=== PATIENT | male | born 1995 | race African-American/Black ===

== ENCOUNTER 2018-03-10 10:53 | Emergency (ER) | payer BC, SELFPAY ==
--- NOTE | 2018-03-10 12:06 | EDPHYS ---
Physician Documentation [facility] Name: Benjamin Rico Jr Age: 23 yrs Sex: Male : 1995 Arrival Date: 03/10/2018 Time: 10:56 Bed 12 Private MD: ED Physician Bassam Garcia HPI: 03/10 16:39 This 23 yrs old Black Male presents to ER via Ambulatory with complaints of Ear Pain. kdr 16:39 The patient presents with drainage, pain, swelling, tenderness. The complaints affect kdr the right ear. Onset: The symptoms/episode began/occurred gradually, 3 day(s) ago. 17:14 The patient had his ears pierced about 4 weeks [employer] and now has pain, swelling and kdr drainage to the puncture site of the right ear. Historical: - Allergies: 11:00 No Known Allergies; sv - Home Meds: 11:00 None [Active]; sv - PMHx: 11:00 None; sv - PSHx: 11:00 None; sv - Immunization history:: Flu vaccine is up to date. - Ebola Screening: : No symptoms or risks identified at this time. ROS: 17:14 Constitutional: Negative for fever, chills, and weight loss, Eyes: Negative for injury, kdr pain, redness, and discharge, Neck: Negative for injury, pain, and swelling, Cardiovascular: Negative for chest pain, palpitations, and edema. 17:14 ENT: Positive for drainage from ear(s), ear pain, From puncture site of ear piercing on pinna. Exam: 03/11 07:38 Constitutional: This is a well developed, well nourished patient who is awake, alert, kdr and in no acute distress. ENT: External ear(s): abscess, that is very small, cellulitis, that is minimal, of the right ear lobe, erythema, that is minimal. Vital Signs: 03/10 11:00 BP 135 / 77; Pulse 69; Resp 16; Temp 97.4; Pulse Ox 99% ; Weight 103.87 kg; Height 6 sv ft. 2 in. (187.96 cm); Pain 4/10; 11:00 Body Mass Index 29.40 (103.87 kg, 187.96 cm) sv MDM: 12:04 Patient medically screened. kdr 03/11 07:38 Data reviewed: vital signs, nurses notes. Counseling: I had a detailed discussion with kdr the patient and/or guardian regarding: the historical points, exam findings, and any diagnostic results supporting the discharge/admit diagnosis, the need for outpatient follow up. Administered Medications: 03/10 12:13 Drug: Clindamycin 300 mg Route: PO; 12:13 Follow up: Response: Medication administered at discharge. Disposition: 03/10/18 12:04 Discharged to Home. Impression: Cellulitis of right external ear. - Condition is Stable. - Discharge Instructions: Cellulitis, Adult, [id number]. - Prescriptions for Clindamycin HCl 300 mg Oral Capsule - take 1 capsule by ORAL route every 6 hours for 7 days; 28 capsule. - Medication Reconciliation Form, Thank You Letter, Antibiotic Education form. - Follow up: Private Physician; When: 2 - 3 days; Reason: If symptoms return, Further diagnostic work-up, Recheck today's complaints, Continuance of care, Re-evaluation by your physician. - Problem is new. - Symptoms are unchanged. Signatures: Riana Rodríguez RN RN Bassam Garcia MD MD [facility] Zo Martinez RN RN Corrections: (The following items were deleted from the chart) 12:16 12:04 03/10/2018 12:04 Discharged to Home. Impression: Cellulitis of right external hb ear. Condition is Stable. Forms are Medication Reconciliation Form, Thank You Letter, Antibiotic Education, Prescription Opioid Use. Follow up: Private Physician; When: 2 - 3 days; Reason: If symptoms return, Further diagnostic work-up, Recheck today's complaints, Continuance of care, Re-evaluation by your physician. Problem is new. Symptoms are unchanged. kdr
--- NOTE | 2018-03-10 12:06 | ER ---
Nurse's Notes [facility] Name: Benjamin Rico Jr Age: 23 yrs Sex: Male : 1995 Arrival Date: 03/10/2018 Time: 10:56 Bed 12 Private MD: Diagnosis: Cellulitis of right external ear Presentation: 03/10 10:59 Presenting complaint: Patient states: right ear pain x 2 days. Transition of care: sv patient was not received from another setting of care. Onset of symptoms was March 08, 2018. Care prior to arrival: None. 10:59 Method Of Arrival: Ambulatory sv 10:59 Acuity: LUANNE 5 sv 11:30 Risk Assessment: Do you want to hurt yourself or someone else? Patient reports no hb desire to harm self or others. Initial Sepsis Screen: Does the patient meet any 2 criteria? No. Patient's initial sepsis screen is negative. Does the patient have a suspected source of infection? No. Patient's initial sepsis screen is negative. Historical: - Allergies: 11:00 No Known Allergies; sv - Home Meds: 11:00 None [Active]; sv - PMHx: 11:00 None; sv - PSHx: 11:00 None; sv - Immunization history:: Flu vaccine is up to date. - Ebola Screening: : No symptoms or risks identified at this time. Screenin:45 Abuse screen: Denies threats or abuse. Denies injuries from another. Nutritional hb screening: No deficits noted. Tuberculosis screening: No symptoms or risk factors identified. Fall Risk None identified. Assessment: 11:45 General: Appears in no apparent distress. Behavior is calm, cooperative. Pain: Denies hb pain. Neuro: Level of Consciousness is awake, alert, obeys commands, Oriented to person, place, time, situation. Cardiovascular: Capillary refill < 3 seconds Patient's skin is warm and dry. Respiratory: Airway is patent Trachea midline Respiratory effort is even, unlabored, Respiratory pattern is regular, symmetrical. GI: No signs and/or symptoms were reported involving the gastrointestinal system. : No signs and/or symptoms were reported regarding the genitourinary system. EENT: redness behind right ear. Derm: Skin is pink, warm \T\ dry. Musculoskeletal: No signs and/or symptoms reported regarding the musculoskeletal system. Vital Signs: 11:00 BP 135 / 77; Pulse 69; Resp 16; Temp 97.4; Pulse Ox 99% ; Weight 103.87 kg; Height 6 sv ft. 2 in. (187.96 cm); Pain 4/10; 11:00 Body Mass Index 29.40 (103.87 kg, 187.96 cm) sv ED Course: 10:56 Patient arrived in ED. as 11:00 Triage completed. sv 11:00 Arm band placed on. sv 11:22 Bassam Garcia MD is Attending Physician. kdr 11:45 Patient has correct armband on for positive identification. Bed in low position. Call hb light in reach. Side rails up X 1. 12:15 No provider procedures requiring assistance completed. Patient did not have IV access hb during this emergency room visit. Administered Medications: 12:13 Drug: Clindamycin 300 mg Route: PO; hb 12:13 Follow up: Response: Medication administered at discharge. hb Outcome: 12:04 Discharge ordered by . kdr 12:15 Discharged to home ambulatory. hb 12:15 Condition: stable 12:15 Discharge instructions given to patient, Instructed on discharge instructions, follow up and referral plans. medication usage, Demonstrated understanding of instructions, follow-up care, medications, Prescriptions given X 1. 12:16 Patient left the ED. hb Signatures: Riana Rodríguez, RN RN Bassam Garcia MD MD kdr Elisabeth Mckeon Heather, RN RN hb
[2018-03-10] MEDS ORDERED: CLINDAMYCIN HCL 150 MG CAP ONE (12:18)
== END 2018-03-10 12:16 | disposition home or self-care (01) ==
LOC: ER 10:53
DX: H60.11 Cellulitis of right external ear (principal)
CPT/HCPCS: 99283

== ENCOUNTER 2019-05-04 22:32 | Emergency (ER) | payer BC, SELFPAY ==
[2019-05-05] MEDS ORDERED: DIAZEPAM 5 MG TABLET ONE (00:20)
[2019-05-05] MEDS ORDERED: KETOROLAC 30 MG/ML INJ ONE (00:21)
[2019-05-05] MEDS ORDERED: NA CHLORIDE 0.9% 1,000 ML ONE (00:21)
[2019-05-05 01:14] LABS: Absolute Lymphocytes (CBC) 1.8 K/uL (0.7-4.9); Basophils % 0.8 % (0-1.3); Hematocrit 41.2 % (39.6-49.0); Lymphocytes % 39.7 % (15.3-44.8); MPV 7.9 fL (7.6-11.3); RBC Red Blood Cell Count 4.94 M/uL (4.33-5.43)
[2019-05-05 01:29] LABS: ALT/SGPT 43 U/L (12-78); AST/SGOT 26 U/L (15-37); Albumin 4.4 g/dL (3.4-5.0); Alkaline Phosphatase 72 U/L (45-117); BUN Blood Urea Nitrogen 17 mg/dL (7-18); Bicarbonate 31 mmol/L (21-32); Bilirubin Total 0.6 mg/dL (0.2-1.0); Glucose Level 96 mg/dL (74-106); Potassium 3.4 mmol/L (3.5-5.1); Protein, Total 7.8 g/dL (6.4-8.2); Sodium Level 141 mmol/L (136-145)
--- NOTE | 2019-05-05 01:31 | ER ---
Nurse's Notes [facility] Name: Benjamin Rico Jr Age: 24 yrs Sex: Male : 1995 Arrival Date: 05/04/2019 Time: 22:34 Bed 23 Private MD: Diagnosis: Pain in right lower leg;Pain in right leg Presentation: 05/04 22:46 Presenting complaint: Patient states: R leg pain x 1.5 months. States, "It started with aa1 a really bad stephan horse and I went to see my doctor and he gave me some medicine and it went away but then it came back 2 days after I finished the medicine." Denies injury. Transition of care: patient was not received from another setting of care. Onset of symptoms was February 2019. Risk Assessment: Do you want to hurt yourself or someone else? Patient reports no desire to harm self or others. Initial Sepsis Screen: Does the patient meet any 2 criteria? No. Patient's initial sepsis screen is negative. Does the patient have a suspected source of infection? No. Patient's initial sepsis screen is negative. Care prior to arrival: None. 22:46 Method Of Arrival: Ambulatory aa1 22:46 Acuity: LUANNE 4 aa1 Triage Assessment: 22:49 General: Appears in no apparent distress. comfortable, Behavior is calm, cooperative, aa1 appropriate for age. Historical: - Allergies: 22:49 No Known Allergies; aa1 - Home Meds: 22:49 None [Active]; aa1 - PMHx: 22:49 None; aa1 - PSHx: 22:49 None; aa1 - Immunization history:: Flu vaccine is not up to date. - Social history:: Smoking status: Patient/guardian denies using tobacco. - Ebola Screening: : No symptoms or risks identified at this time. - Family history:: not pertinent. Screenin/06 00:00 Abuse screen: Denies threats or abuse. Denies injuries from another. Nutritional aj1 screening: No deficits noted. Tuberculosis screening: No symptoms or risk factors identified. 02:26 Fall Risk None identified. aj1 Assessment: 00:00 General: Appears in no apparent distress. uncomfortable, Behavior is calm, cooperative, aj1 appropriate for age. Pain: Complains of pain in right vila and right calf. Neuro: Level of Consciousness is awake, alert, obeys commands. Cardiovascular: Patient's skin is warm and dry. Respiratory: Airway is patent Respiratory effort is even, unlabored, Respiratory pattern is regular, symmetrical. GI: No signs and/or symptoms were reported involving the gastrointestinal system. : No signs and/or symptoms were reported regarding the genitourinary system. EENT: No signs and/or symptoms were reported regarding the EENT system. Derm: Skin is normal. Musculoskeletal: Circulation, motion, and sensation intact. 01:00 Reassessment: Patient appears in no apparent distress at this time. No changes from aj1 previously documented assessment. Patient and/or family updated on plan of care and expected duration. Pain level reassessed. Patient is alert, oriented x 3, equal unlabored respirations, skin warm/dry/pink. 01:30 Reassessment: Discharge pending completion of IV fluids. aj1 02:10 Reassessment: Patient appears in no apparent distress at this time. No changes from aj1 previously documented assessment. Patient and/or family updated on plan of care and expected duration. Pain level reassessed. Patient is alert, oriented x 3, equal unlabored respirations, skin warm/dry/pink. Vital Signs: 05/04 22:49 BP 126 / 78; Pulse 70; Resp 16; Temp 98.0; Pulse Ox 100% on R/A; Weight 108.86 kg; aa1 Height 6 ft. 2 in. (187.96 cm); Pain 7/10; 05/05 01:30 BP 122 / 62; Pulse 75; Resp 18; Pulse Ox 97% on R/A; aj1 05/04 22:49 Body Mass Index 30.81 (108.86 kg, 187.96 cm) aa ED Course: 05/04 22:34 Patient arrived in ED. as 22:48 Triage completed. aa1 22:49 Arm band placed on right wrist. Patient placed in waiting room, Patient notified of 1 wait time. 23:46 Wicho Ag MD is Attending Physician. [facility] 05/05 00:00 Patient has correct armband on for positive identification. Bed in low position. Call aj1 light in reach. Side rails up X 1. 00:00 No provider procedures requiring assistance completed. Inserted saline lock: 22 gauge aj1 in right antecubital area, using aseptic technique. Blood collected. 00:01 Juana Hollingsworth, RN is Primary Nurse. aj1 01:20 US Extremity Venous Unilateral Ltd In Process Unspecified. EDMS 01:29 Ajay Heller MD is Referral Physician. [facility] 01:49 Tib Fib Right XRAY In Process Unspecified. EDMS 02:25 IV discontinued, intact, bleeding controlled, No redness/swelling at site. Pressure aj1 dressing applied. Administered Medications: 00:27 Drug: Valium 5 mg Route: PO; aj1 02:26 Follow up: Response: No adverse reaction aj1 00:58 Drug: NS 0.9% 1000 ml Route: IV; Rate: 1 bolus; Site: left antecubital; aj1 02:27 Follow up: IV Status: Completed infusion; IV Intake: 1000ml aj1 01:01 Drug: TORadol 30 mg Route: IVP; Site: right antecubital; aj1 02:26 Follow up: Response: No adverse reaction aj1 Intake: 02:27 IV: 1000ml; Total: 1000ml. aj1 Outcome: :29 Discharge ordered by . [facility] 02:26 Discharged to home ambulatory. aj1 02:26 Condition: good 02:26 Discharge instructions given to patient, Instructed on discharge instructions, follow up and referral plans. no drinking with medication, no driving heavy equipment, medication usage, Demonstrated understanding of instructions, follow-up care, medications, Prescriptions given X 2. 02:27 Patient left the ED. aj1 Signatures: Dispatcher [employer] Juana Galvan, LASHAE RN aj1 Patricia Guadalupe RN RN aa1 Wicho Ag MD MD cha Martinez, Amelia as
--- NOTE | 2019-05-05 01:31 | EDPHYS ---
Physician Documentation [facility] Name: Benjamin Rico Jr Age: 24 yrs Sex: Male : 1995 Arrival Date: 05/04/2019 Time: 22:34 Bed 23 Private MD: ED Physician Wicho Ag HPI: 05/05 00:10 This 24 yrs old Black Male presents to ER via Ambulatory with complaints of Leg Pain. emmanuel 00:10 The patient presents with decreased range of motion, pain. The complaints affect the emmanuel lateral aspect of right calf and right calf. Context: The problem was sustained at an unknown site. Onset: The symptoms/episode began/occurred 7 day(s) ago. Modifying factors: The symptoms are alleviated by nothing. the symptoms are aggravated by nothing. Associated signs and symptoms: The patient has no apparent associated signs or symptoms. Severity of symptoms: At their worst the symptoms were mild, moderate, in the emergency department the symptoms are unchanged. The patient has not experienced similar symptoms in the past. Historical: - Allergies: 05/04 22:49 No Known Allergies; aa1 - Home Meds: 22:49 None [Active]; aa1 - PMHx: 22:49 None; aa1 - PSHx: 22:49 None; aa1 - Immunization history:: Flu vaccine is not up to date. - Social history:: Smoking status: Patient/guardian denies using tobacco. - Ebola Screening: : No symptoms or risks identified at this time. - Family history:: not pertinent. ROS: 05/05 00:10 Constitutional: Negative for fever, chills, and weight loss, Eyes: Negative for injury, emmanuel pain, redness, and discharge, ENT: Negative for injury, pain, and discharge, Neck: Negative for injury, pain, and swelling, Cardiovascular: Negative for chest pain, palpitations, and edema, Respiratory: Negative for shortness of breath, cough, wheezing, and pleuritic chest pain, Abdomen/GI: Negative for abdominal pain, nausea, vomiting, diarrhea, and constipation, Back: Negative for injury and pain, : Negative for injury, bleeding, discharge, and swelling, Skin: Negative for injury, rash, and discoloration, Neuro: Negative for headache, weakness, numbness, tingling, and seizure, Psych: Negative for depression, anxiety, suicide ideation, homicidal ideation, and hallucinations, Allergy/Immunology: Negative for hives, rash, and allergies, Endocrine: Negative for neck swelling, polydipsia, polyuria, polyphagia, and marked weight changes, Hematologic/Lymphatic: Negative for swollen nodes, abnormal bleeding, and unusual bruising. MS/extremity: Positive for decreased range of motion, pain, of the lateral aspect of right calf, right calf and right vila. Exam: 00:10 Constitutional: This is a well developed, well nourished patient who is awake, alert, emmanuel and in no acute distress. Head/Face: Normocephalic, atraumatic. Eyes: Pupils equal round and reactive to light, extra-ocular motions intact. Lids and lashes normal. Conjunctiva and sclera are non-icteric and not injected. Cornea within normal limits. Periorbital areas with no swelling, redness, or edema. ENT: Nares patent. No nasal discharge, no septal abnormalities noted. Tympanic membranes are normal and external auditory canals are clear. Oropharynx with no redness, swelling, or masses, exudates, or evidence of obstruction, uvula midline. Mucous membranes moist. Neck: Trachea midline, no thyromegaly or masses palpated, and no cervical lymphadenopathy. Supple, full range of motion without nuchal rigidity, or vertebral point tenderness. No Meningismus. Chest/axilla: Normal chest wall appearance and motion. Nontender with no deformity. No lesions are appreciated. Cardiovascular: Regular rate and rhythm with a normal S1 and S2. No gallops, murmurs, or rubs. Normal PMI, no JVD. No pulse deficits. Respiratory: Lungs have equal breath sounds bilaterally, clear to auscultation and percussion. No rales, rhonchi or wheezes noted. No increased work of breathing, no retractions or nasal flaring. Abdomen/GI: Soft, non-tender, with normal bowel sounds. No distension or tympany. No guarding or rebound. No evidence of tenderness throughout. Back: No spinal tenderness. No costovertebral tenderness. Full range of motion. Male : Normal genitalia with no discharge or lesions. Skin: Warm, dry with normal turgor. Normal color with no rashes, no lesions, and no evidence of cellulitis. Neuro: Awake and alert, GCS 15, oriented to person, place, time, and situation. Cranial nerves II-XII grossly intact. Motor strength 5/5 in all extremities. Sensory grossly intact. Cerebellar exam normal. Normal gait. Psych: Awake, alert, with orientation to person, place and time. Behavior, mood, and affect are within normal limits. 00:10 Musculoskeletal/extremity: ROM: full active range of motion, full passive range of motion, Circulation is intact in all extremities. Sensation intact. Compartment Syndrome exam of affected extremity: is normal. DVT Exam: negative Homans' sign noted on exam, no appreciated bluish discoloration, no erythema, no increased warmth, pain, swelling, tenderness. Vital Signs: 05/04 22:49 BP 126 / 78; Pulse 70; Resp 16; Temp 98.0; Pulse Ox 100% on R/A; Weight 108.86 kg; aa1 Height 6 ft. 2 in. (187.96 cm); Pain 7/10; 05/05 01:30 BP 122 / 62; Pulse 75; Resp 18; Pulse Ox 97% on R/A; aj1 05/04 22:49 Body Mass Index 30.81 (108.86 kg, 187.96 cm) aa1 MDM: 05/04 23:46 Patient medically screened. [facility] 05/05 00:12 Data reviewed: vital signs, nurses notes, lab test result(s), radiologic studies, plain emmanuel films, ultrasound. 05/05 00:10 Order name: CBC with Diff; Complete Time: 01:16 [facility] 05/05 00:10 Order name: Comprehensive Metabolic Panel [facility] 05/05 00:10 Order name: Tib Fib Right XRAY [facility] 05/05 00:10 Order name: US Extremity Venous Unilateral Ltd [facility] Administered Medications: 00:27 Drug: Valium 5 mg Route: PO; aj1 02:26 Follow up: Response: No adverse reaction aj1 00:58 Drug: NS 0.9% 1000 ml Route: IV; Rate: 1 bolus; Site: left antecubital; aj1 02:27 Follow up: IV Status: Completed infusion; IV Intake: 1000ml aj 01:01 Drug: TORadol 30 mg Route: IVP; Site: right antecubital; aj1 02:26 Follow up: Response: No adverse reaction aj1 Disposition: 05/05/19 01:29 Discharged to Home. Impression: Pain in right lower leg, Pain in right leg. - Condition is Stable. - Discharge Instructions: Musculoskeletal Pain. - Prescriptions for Ibuprofen 600 mg Oral Tablet - take 1 tablet by ORAL route every 6 hours As needed take with food; 20 tablet. Valium 5 mg Oral Tablet - take 1 tablet by ORAL route every 8 hours As needed; 20 tablet. - Work release form, Medication Reconciliation Form, Thank You Letter, Antibiotic Education, Prescription Opioid Use form. - Follow up: Private Physician; When: 2 - 3 days; Reason: Recheck today's complaints, Continuance of care, Re-evaluation by your physician. Follow up: Ajay Heller; When: 2 - 3 days; Reason: Recheck today's complaints, Continuance of care, Re-evaluation by your physician. - Problem is new. - Symptoms have improved. Signatures: Dispatcher [employer] EDJuana Puga RN RN aj1 Patricia Guadalupe RN RN aa1 Wicho Ag MD MD cha Corrections: (The following items were deleted from the chart) 02:27 01:29 05/05/2019 01:29 Discharged to Home. Impression: Pain in right lower leg; Pain in aj1 right leg. Condition is Stable. Discharge Instructions: Musculoskeletal Pain. Prescriptions for Ibuprofen 600 mg Oral Tablet - take 1 tablet by ORAL route every 6 hours As needed take with food; 20 tablet, Valium 5 mg Oral Tablet - take 1 tablet by ORAL route every 8 hours As needed; 20 tablet. and Forms are Medication Reconciliation Form, Thank You Letter, Antibiotic Education, Prescription Opioid Use. Follow up: Private Physician; When: 2 - 3 days; Reason: Recheck today's complaints, Continuance of care, Re-evaluation by your physician. Follow up: Ajay Heller; When: 2 - 3 days; Reason: Recheck today's complaints, Continuance of care, Re-evaluation by your physician. Problem is new. Symptoms have improved. emmanuel
[2019-05-05 04:11] VITALS: TEMP 98
[2019-05-05 04:12] VITALS: BP 122/62; O2SAT 97
--- NOTE | 2019-05-05 08:23 | RAD REPORT ---
EXAM DESCRIPTION: US - Extremity Venous Uni Ltd - 05/05/2019 1:20 am CLINICAL HISTORY: PAIN Leg swelling and edema. COMPARISON: No comparisons FINDINGS: Right lower extremity venous system was interrogated with Doppler technique. Normal flow, compressibility and augmentation was noted. There is no DVT present. IMPRESSION: No evidence of right lower extremity deep venous thrombosis.
--- NOTE | 2019-05-05 08:33 | RAD REPORT ---
EXAM DESCRIPTION: RAD - Tib Fib Right - 05/05/2019 1:48 am CLINICAL HISTORY: PAIN COMPARISON: No comparisons FINDINGS: No fracture or dislocation seen.
== END 2019-05-05 02:27 | disposition home or self-care (01) ==
LOC: ER 22:32
DX: M79.604 Pain in right leg (principal)
CPT/HCPCS: 36415; 80053; 85025; 93971; 96361; 96374; 99284; J7030

== ENCOUNTER 2019-07-03 09:29 | Emergency (ER) | payer BC, SELFPAY ==
--- NOTE | 2019-07-03 10:22 | ER ---
Nurse's Notes [facility] Name: Benjamin Rico Jr Age: 24 yrs Sex: Male : 1995 Arrival Date: 07/03/2019 Time: 09:30 Bed 11 Private MD: Diagnosis: Abrasion of ear Presentation: 07/03 09:44 Presenting complaint: Patient states: L ear pain, i think it was bleeding this morning. ch when I yawn it cracks. Transition of care: patient was not received from another setting of care. Onset of symptoms was July 03, 2019 at 07:00. Risk Assessment: Do you want to hurt yourself or someone else? Patient reports no desire to harm self or others. Initial Sepsis Screen: Does the patient meet any 2 criteria? No. Patient's initial sepsis screen is negative. Does the patient have a suspected source of infection? No. Patient's initial sepsis screen is negative. Care prior to arrival: None. 09:44 Method Of Arrival: Ambulatory 09:44 Acuity: LUANNE 5 ch Triage Assessment: 09:45 General: Appears in no apparent distress. comfortable, Behavior is calm, cooperative, ch appropriate for age. Pain: Complains of pain in left ear Pain currently is 8 out of 10 on a pain scale. EENT: Reports pain in left ear. Historical: - Allergies: 09:45 No Known Allergies; ch - Home Meds: 09:45 None [Active]; ch - PMHx: 09:45 None; ch - PSHx: 09:45 None; ch - Immunization history:: Adult Immunizations up to date. - Coronavirus screen:: The patient has NOT traveled to [place], [place], or [place] in the past 14 days. The patient has NOT had contact with known/suspected case of Coronavirus?. - Social history:: Smoking status: Patient denies any tobacco usage or history of. - Ebola Screening: : Patient negative for fever greater than or equal to 101.5 degrees Fahrenheit, and additional compatible Ebola Virus Disease symptoms Patient denies exposure to infectious person Patient denies travel to an Ebola-affected area in the 21 days before illness onset No symptoms or risks identified at this time. Screenin:32 Abuse screen: Denies threats or abuse. Denies injuries from another. Nutritional ss screening: No deficits noted. Tuberculosis screening: Never had TB. Fall Risk None identified. Assessment: 10:15 Reassessment: Patient appears in no apparent distress at this time. No changes from previously documented assessment. Patient and/or family updated on plan of care and expected duration. Pain level reassessed. Patient is alert, oriented x 3, equal unlabored respirations, skin warm/dry/pink. Vital Signs: 09:45 BP 118 / 69; Pulse 68; Resp 16; Temp 98.8; Pulse Ox 99% on R/A; Weight 104.33 kg; Height 6 ft. 1 in. (185.42 cm); Pain 7/10; 09:45 Body Mass Index 30.34 (104.33 kg, 185.42 cm) ED Course: 09:30 Patient arrived in ED. as 09:45 Triage completed. 09:45 Arm band placed on left wrist. 10:01 Wicho Ag MD is Attending Physician. [facility] 10:15 Patient has correct armband on for positive identification. Bed in low position. 10:30 Dara Martinez, LASHAE is Primary Nurse. 10:31 No provider procedures requiring assistance completed. Patient did not have IV access ss during this emergency room visit. Administered Medications: 10:31 Drug: Neosporin Ointment 1 application Route: Topical; Site: wound; ss Outcome: 10:22 Discharge ordered by . [facility] 10:31 Discharged to home ambulatory, with friend. 10:31 Condition: good 10:31 Discharge instructions given to patient, family, Instructed on discharge instructions, follow up and referral plans. Demonstrated understanding of instructions, follow-up care. 10:33 Patient left the ED. ss Signatures: Ju Colin, RN RN Wicho Ag MD MD cha Martinez, Amelia as Dara Martinez RN RN ss
--- NOTE | 2019-07-03 10:22 | EDPHYS ---
Physician Documentation [facility] Name: Benjamin Rico Jr Age: 24 yrs Sex: Male : 1995 Arrival Date: 07/03/2019 Time: 09:30 Bed 11 Private MD: ED Physician Wicho Ag HPI: 07/03 10:19 This 24 yrs old Black Male presents to ER via Ambulatory with complaints of Ear Pain. emmanuel 10:19 The patient presents with pain, tenderness. The complaints affect the left ear. Onset: emmanuel The symptoms/episode began/occurred 2 day(s) ago. Modifying factors: The symptoms are alleviated by nothing, the symptoms are aggravated by nothing. Associated signs and symptoms: The patient has no apparent associated signs or symptoms. Severity of symptoms: At their worst the symptoms were mild in the emergency department the symptoms are unchanged. The patient has not experienced similar symptoms in the past. Historical: - Allergies: 09:45 No Known Allergies; ch - Home Meds: :45 None [Active]; ch - PMHx: :45 None; ch - PSHx: 09:45 None; ch - Immunization history:: Adult Immunizations up to date. - Coronavirus screen:: The patient has NOT traveled to [place], [place], or [place] in the past 14 days. The patient has NOT had contact with known/suspected case of Coronavirus?. - Social history:: Smoking status: Patient denies any tobacco usage or history of. - Ebola Screening: : Patient negative for fever greater than or equal to 101.5 degrees Fahrenheit, and additional compatible Ebola Virus Disease symptoms Patient denies exposure to infectious person Patient denies travel to an Ebola-affected area in the 21 days before illness onset No symptoms or risks identified at this time. ROS: 10:20 Constitutional: Negative for fever, chills, and weight loss, Eyes: Negative for injury, emmanuel pain, redness, and discharge, Neck: Negative for injury, pain, and swelling, Cardiovascular: Negative for chest pain, palpitations, and edema, Respiratory: Negative for shortness of breath, cough, wheezing, and pleuritic chest pain, Abdomen/GI: Negative for abdominal pain, nausea, vomiting, diarrhea, and constipation, Back: Negative for injury and pain, : Negative for injury, bleeding, discharge, and swelling, MS/Extremity: Negative for injury and deformity, Skin: Negative for injury, rash, and discoloration, Neuro: Negative for headache, weakness, numbness, tingling, and seizure, Psych: Negative for depression, anxiety, suicide ideation, homicidal ideation, and hallucinations, Allergy/Immunology: Negative for hives, rash, and allergies, Endocrine: Negative for neck swelling, polydipsia, polyuria, polyphagia, and marked weight changes, Hematologic/Lymphatic: Negative for swollen nodes, abnormal bleeding, and unusual bruising. 10:20 ENT: Positive for ear pain. Exam: 10:20 Constitutional: This is a well developed, well nourished patient who is awake, alert, emmanuel and in no acute distress. Head/Face: Normocephalic, atraumatic. Eyes: Pupils equal round and reactive to light, extra-ocular motions intact. Lids and lashes normal. Conjunctiva and sclera are non-icteric and not injected. Cornea within normal limits. Periorbital areas with no swelling, redness, or edema. Neck: Trachea midline, no thyromegaly or masses palpated, and no cervical lymphadenopathy. Supple, full range of motion without nuchal rigidity, or vertebral point tenderness. No Meningismus. Chest/axilla: Normal chest wall appearance and motion. Nontender with no deformity. No lesions are appreciated. Cardiovascular: Regular rate and rhythm with a normal S1 and S2. No gallops, murmurs, or rubs. Normal PMI, no JVD. No pulse deficits. Respiratory: Lungs have equal breath sounds bilaterally, clear to auscultation and percussion. No rales, rhonchi or wheezes noted. No increased work of breathing, no retractions or nasal flaring. Abdomen/GI: Soft, non-tender, with normal bowel sounds. No distension or tympany. No guarding or rebound. No evidence of tenderness throughout. Back: No spinal tenderness. No costovertebral tenderness. Full range of motion. Male : Normal genitalia with no discharge or lesions. Skin: Warm, dry with normal turgor. Normal color with no rashes, no lesions, and no evidence of cellulitis. MS/ Extremity: Pulses equal, no cyanosis. Neurovascular intact. Full, normal range of motion. Neuro: Awake and alert, GCS 15, oriented to person, place, time, and situation. Cranial nerves II-XII grossly intact. Motor strength 5/5 in all extremities. Sensory grossly intact. Cerebellar exam normal. Normal gait. Psych: Awake, alert, with orientation to person, place and time. Behavior, mood, and affect are within normal limits. 10:20 ENT: Ear canal(s): bleeding. Vital Signs: 09:45 BP 118 / 69; Pulse 68; Resp 16; Temp 98.8; Pulse Ox 99% on R/A; Weight 104.33 kg; Height 6 ft. 1 in. (185.42 cm); Pain 7/10; 09:45 Body Mass Index 30.34 (104.33 kg, 185.42 cm) MDM: 10:01 Patient medically screened. [facility] 10:20 Data reviewed: vital signs, nurses notes. [facility] Administered Medications: 10:31 Drug: Neosporin Ointment 1 application Route: Topical; Site: wound; ss Disposition: 07/03/19 10:22 Discharged to Home. Impression: Abrasion of ear. - Condition is Stable. - Discharge Instructions: Abrasion, Abrasion, [id number]. - Medication Reconciliation Form, Thank You Letter, Antibiotic Education, Prescription Opioid Use, Work release form form. - Follow up: Private Physician; When: 2 - 3 days; Reason: Recheck today's complaints, Continuance of care, Re-evaluation by your physician. - Problem is new. - Symptoms have improved. Signatures: Ju Colin, LASHAE RN Wicho Ag MD MD cha Smirch, Shelby, RN RN ss Corrections: (The following items were deleted from the chart) 10:33 10:22 07/03/2019 10:22 Discharged to Home. Impression: Abrasion of ear. Condition is ss Stable. Forms are Medication Reconciliation Form, Thank You Letter, Antibiotic Education, Prescription Opioid Use. Follow up: Private Physician; When: 2 - 3 days; Reason: Recheck today's complaints, Continuance of care, Re-evaluation by your physician. Problem is new. Symptoms have improved. [facility]
[2019-07-03 10:48] VITALS: BP 118/69; TEMP 98.8; O2SAT 99
== END 2019-07-03 10:33 | disposition home or self-care (01) ==
LOC: ER 09:29
DX: S00.412A Abrasion of left ear, initial encounter (principal)
CPT/HCPCS: 99283

== ENCOUNTER 2021-08-13 21:26 | Emergency (ER) | payer BC ==
[2021-08-13] MEDS ORDERED: LEVALBUTEROL 1.25 MG/3 ML NEB ONE (22:36)
[2021-08-13 22:37] LABS: Absolute Lymphocytes (CBC) 0.6 K/uL (0.7-4.9); Hematocrit 40.5 % (39.6-49.0); Lymphocytes % 15.6 % (15.3-44.8)
[2021-08-13 22:53] LABS: BUN Blood Urea Nitrogen 12 mg/dL (7-18); Bicarbonate 30 mmol/L (21-32); Glucose Level 80 mg/dL (74-106); Potassium 3.3 mmol/L (3.5-5.1); Sodium Level 138 mmol/L (136-145)
[2021-08-13 23:30] LABS: SARS-COV-2 RT PCR NEGATIVE (NEGATIVE)
[2021-08-13] MEDS ORDERED: BENZONATATE 100 MG CAP PO ONE (23:53)
--- NOTE | 2021-08-14 | ER ---
Nurse's Notes [facility] Name: Benjamin Rico Jr Age: 26 yrs Sex: Male : 1995 Arrival Date: 08/13/2021 Time: 21:29 Bed 4 Private MD: Diagnosis: Influenza due to identified novel influenza A virus;Cough Presentation: 08/13 21:47 Chief complaint: Patient states: Dry cough when waking up in the morning that is ke1 constant throughout the day. Started 4 days ago. Coronavirus screen: Vaccine status: Patient reports being unvaccinated. Ebola Screen: No symptoms or risks identified at this time. Initial Sepsis Screen: Does the patient meet any 2 criteria? No. Patient's initial sepsis screen is negative. Does the patient have a suspected source of infection? No. Patient's initial sepsis screen is negative. Risk Assessment: Do you want to hurt yourself or someone else? Patient reports no desire to harm self or others. Onset of symptoms was August 10, 2021. 21:47 Method Of Arrival: Ambulatory ke1 21:47 Acuity: LUANNE 3 ke1 Triage Assessment: 21:53 General: Appears uncomfortable, Behavior is calm, cooperative. Pain: Complains of pain ke1 in throat. Historical: - Allergies: 21:52 No Known Allergies; ke1 - PMHx: 21:52 None; ke1 - PSHx: 21:52 None; ke1 - Immunization history:: Flu vaccine is up to date. - Social history:: Smoking status: Patient reports the use of cigarette tobacco products, very seldom. Screenin:14 Abuse screen: Denies threats or abuse. Nutritional screening: No deficits noted. sf1 Tuberculosis screening: No symptoms or risk factors identified. Fall Risk None identified. Assessment: 22:14 Respiratory: Reports cough that is productive. sf1 Vital Signs: 21:47 BP 145 / 81; Pulse 108; Resp 18; Temp 98.8; Pulse Ox 100% ; Weight 116.57 kg; Height 6 ke1 ft. 1 in. (185.42 cm); Pain 2/10; 23:54 BP 135 / 90; Pulse 101; Resp 18; Pulse Ox 96% on R/A; sf1 21:47 Body Mass Index 33.91 (116.57 kg, 185.42 cm) ke1 21:47 throat pain from coughing ke1 ED Course: 21:29 Patient arrived in ED. jj6 21:52 Triage completed. ke1 21:57 Bassam Garcia MD is Attending Physician. kdr 22:02 Arm band placed on. as6 22:13 D-Dimer Sent. sf1 22:14 Patient has correct armband on for positive identification. Call light in reach. sf1 22:14 Basic Metabolic Panel Sent. sf1 22:14 CBC with Diff Sent. sf1 22:14 Inserted saline lock: 20 gauge in left antecubital area, using aseptic technique. Blood sf1 collected. 22:23 Yane Quispe, RN is Primary Nurse. st1 22:25 XRAY Chest (1 view) In Process Unspecified. EDMS 22:37 COVID-19/FLU A+B (Document "Date of Onset" if Symptomatic) Sent. sf1 03 00:19 No provider procedures requiring assistance completed. IV discontinued, intact, sf1 bleeding controlled, No redness/swelling at site. Pressure dressing applied. Administered Medications: 08/13 22:37 Drug: Xopenex (levalbuterol) (3) 1.25 mg Route: Inhalation; sf1 23:53 Drug: Tessalon Perle (benzonatate) 200 mg Route: PO; sf1 Outcome: 23:59 Discharge ordered by . kdr 03 00:19 Discharged to home ambulatory. sf1 Condition: good Discharge instructions given to patient, Instructed on discharge instructions, follow up and referral plans. Demonstrated understanding of instructions, follow-up care, medications, Prescriptions given X 3. 00:21 Patient left the ED. sf1 Signatures: Dispatcher [employer] EDMS Bassam Garcia MD MD [facility] Oxana Lopez jj6 Shabbir Aguilar RN RN as6 Yane Quispe, RN RN st1 Sussy Thomas RN RN sf1 Gisella Alanis RN RN ke1
--- NOTE | 2021-08-14 | EDPHYS ---
Physician Documentation [facility] Name: eBnjamin Rico Jr Age: 26 yrs Sex: Male : 1995 Arrival Date: 08/13/2021 Time: 21:29 Bed 4 Private MD: ED Physician Bassam Garcia HPI: 08/14 01:01 This 26 yrs old Black Male presents to ER via Ambulatory with complaints of Chest kdr Congestion, Cough, Nasal Congestion. 01:01 The patient or guardian reports cough, that is intermittent, described as mild, with no kdr sputum. Onset: The symptoms/episode began/occurred gradually, 4 day(s) ago. Severity of symptoms: At their worst the symptoms were mild, moderate, just prior to arrival, in the emergency department the symptoms are unchanged. Associated signs and symptoms: The patient has no apparent associated signs or symptoms. The patient has not experienced similar symptoms in the past. The patient has not recently seen a physician. She has had a cough for the last 4 days it has been a dry nonproductive cough that is constant throughout the day. Historical: - Allergies: 08/13 21:52 No Known Allergies; ke1 - PMHx: 21:52 None; ke1 - PSHx: 21:52 None; ke1 - Immunization history:: Flu vaccine is up to date. - Social history:: Smoking status: Patient reports the use of cigarette tobacco products, very seldom. ROS: 08/14 01:01 Constitutional: Negative for fever, chills, and weight loss, Eyes: Negative for injury, kdr pain, redness, and discharge, ENT: Negative for injury, pain, and discharge, Neck: Negative for injury, pain, and swelling, Cardiovascular: Negative for chest pain, palpitations, and edema, Abdomen/GI: Negative for abdominal pain, nausea, vomiting, diarrhea, and constipation, Back: Negative for injury and pain, : Negative for injury, bleeding, discharge, and swelling, MS/Extremity: Negative for injury and deformity, Skin: Negative for injury, rash, and discoloration, Neuro: Negative for headache, weakness, numbness, tingling, and seizure activity. Psych: Negative for depression, anxiety, suicide ideation, homicidal ideation, and hallucinations, Allergy/Immunology: Negative for hives, rash, and allergies, Endocrine: Negative for neck swelling, polydipsia, polyuria, polyphagia, and marked weight changes, Hematologic/Lymphatic: Negative for swollen nodes, abnormal bleeding, and unusual bruising. Respiratory: Positive for cough, with no reported sputum, shortness of breath, wheezing, Negative for pleurisy, wheezing. Exam: 01:01 Constitutional: This is a well developed, well nourished patient who is awake, alert, kdr and in no acute distress. Head/Face: Normocephalic, atraumatic. Eyes: Pupils equal round and reactive to light, extra-ocular motions intact. Lids and lashes normal. Conjunctiva and sclera are non-icteric and not injected. Cornea within normal limits. Periorbital areas with no swelling, redness, or edema. Neck: Trachea midline, no thyromegaly or masses palpated, and no cervical lymphadenopathy. Supple, full range of motion without nuchal rigidity, or vertebral point tenderness. No Meningismus. Chest/axilla: Normal chest wall appearance and motion. Nontender with no deformity. No lesions are appreciated. Respiratory: Lungs have equal breath sounds bilaterally, clear to auscultation and percussion. No rales, rhonchi or wheezes noted. No increased work of breathing, no retractions or nasal flaring. Abdomen/GI: Soft, non-tender, with normal bowel sounds. No distension or tympany. No guarding or rebound. No evidence of tenderness throughout. Back: No spinal tenderness. No costovertebral tenderness. Full range of motion. Skin: Warm, dry with normal turgor. Normal color with no rashes, no lesions, and no evidence of cellulitis. MS/ Extremity: Pulses equal, no cyanosis. Neurovascular intact. Full, normal range of motion. Neuro: Awake and alert, GCS 15, oriented to person, place, time, and situation. Cranial nerves II-XII grossly intact. Motor strength 5/5 in all extremities. Sensory grossly intact. Cerebellar exam normal. Normal gait. Psych: Awake, alert, with orientation to person, place and time. Behavior, mood, and affect are within normal limits. 01:01 Cardiovascular: Regular rate and rhythm with a normal S1 and S2. No gallops, murmurs, or rubs. Normal PMI, no JVD. No pulse deficits. 01:01 Respiratory: the patient does not display signs of respiratory distress, Respirations: normal, Breath sounds: rales, that are mild, are heard diffusely, Very minimal crackles diffuse. Vital Signs: 08/13 21:47 BP 145 / 81; Pulse 108; Resp 18; Temp 98.8; Pulse Ox 100% ; Weight 116.57 kg; Height 6 ke1 ft. 1 in. (185.42 cm); Pain 2/10; 23:54 BP 135 / 90; Pulse 101; Resp 18; Pulse Ox 96% on R/A; sf1 21:47 Body Mass Index 33.91 (116.57 kg, 185.42 cm) ke1 21:47 throat pain from coughing ke1 MDM: 23:59 Patient medically screened. kdr 08/14 01:01 Data reviewed: vital signs, nurses notes, lab test result(s), radiologic studies. kdr Counseling: I had a detailed discussion with the patient and/or guardian regarding: the historical points, exam findings, and any diagnostic results supporting the discharge/admit diagnosis, lab results, radiology results, the need for outpatient follow up. 01:04 ED course: Patient was stable and nontoxic in the ED. He was happy with the care kdr provided and the plan for discharge and follow-up. 08/13 21:58 Order name: Basic Metabolic Panel; Complete Time: 23:15 kdr 08/13 21:58 Order name: CBC with Diff; Complete Time: 23:15 kdr 08/13 21:58 Order name: XRAY Chest (1 view) kdr 08/13 21:58 Order name: D-Dimer; Complete Time: 23:15 kdr 08/13 22:31 Order name: COVID-19/FLU A+B (Document "Date of Onset" if Symptomatic); Complete Time: bb 23:55 08/13 21:58 Order name: IV Saline Lock; Complete Time: 22:13 kdr 08/13 21:58 Order name: Labs collected and sent; Complete Time: 22:14 kdr Administered Medications: 08/13 22:37 Drug: Xopenex (levalbuterol) (3) 1.25 mg Route: Inhalation; sf1 23:53 Drug: Tessalon Perle (benzonatate) 200 mg Route: PO; sf1 Disposition Summary: 08/13/21 23:59 Discharge Ordered Location: Home kdr Problem: new kdr Symptoms: have improved kdr Condition: Stable kdr Diagnosis - Influenza due to identified novel influenza A virus kdr - Cough kdr Followup: kdr - With: Private Physician - When: 2 - 3 days - Reason: If symptoms return, Further diagnostic work-up, Recheck today's complaints, Continuance of care, Re-evaluation by your physician Discharge Instructions: - Upper Respiratory Infection, Adult, [id number] kdr - Influenza, Adult, [id number] kdr - Discharge Summary Sheet la1 Forms: - Medication Reconciliation Form kdr - Thank You Letter kdr - Antibiotic Education kdr - Prescription Opioid Use kdr Prescriptions: - Promethazine VC 6.25-5 mg/5 mL Oral syrup - take 10 milliliter by ORAL route every 4-6 hours; 150 milliliter; Refills: 0, la1 Product Selection Permitted - Tessalon Perles 100 mg Oral Capsule - take 1 capsule by ORAL route every 8 hours As needed; 15 capsule; Refills: 0, la1 Product Selection Permitted - Tamiflu 75 mg Oral Capsule - take 1 tablet by ORAL route every 12 hours for 5 days; 10 tablet; Refills: 0, la1 Product Selection Permitted Signatures: Dispatcher [employer] EDPR Bassam Garcia MD MD kdr Sussy Thomas RN RN sf1 Gisella Alanis RN RN ke1
[2021-08-14 00:32] VITALS: TEMP 98.8
[2021-08-14 00:33] VITALS: BP 135/90; O2SAT 96
--- NOTE | 2021-08-14 11:07 | RAD REPORT ---
EXAM DESCRIPTION: RAD - Chest Single View - 08/13/2021 10:25 pm CLINICAL HISTORY: 6 years Male, Cough;Congestion COMPARISON: Chest radiograph dated 02/01/2020 FINDINGS: No focal lung consolidation. No pleural effusion. No pneumothorax. Cardiomediastinal silhouette is within normal limits. No acute osseous abnormality. IMPRESSION: No acute cardiopulmonary disease. Electronically signed by: Ike Cyr DO 08/13/2021 11:27 PM CDT Due to temporary technical issues with the PACS/Fluency reporting system, reports are being signed by the in house radiologists without review as a courtesy to insure prompt reporting. The interpreting radiologist is fully responsible for the content of the report.
== END 2021-08-14 00:21 | disposition home or self-care (01) ==
LOC: ER 21:26
DX: J10.1 Influenza due to other identified influenza virus with other respiratory manifestations (principal); Z20.822 Contact with and (suspected) exposure to COVID-19; Z72.0 Tobacco use
CPT/HCPCS: 85025; 80048; 36415; 85379; 0240U; 71045; 99284

== ENCOUNTER → 2023-08-08 | Emergency (ER) | payer BC, OTHER, SELFPAY ==
[~2023-08-08] MED LIST: ACETAMINOPHEN 500 MG TAB ONE
--- OUTSIDE RECORDS SUMMARY | 2023-08-08 10:04 | XMS REPORT | Continuity of Care Document ---
Author Name Unknown Address [address] [facility] [address] [place] [address] [facility] thconnect Address [address] [facility] [address] [place] [address] Care Team Providers Care Biostatistics Teacher Name Role Phone SANTA MICHAEL Primary Care Physician EVER Duarte Attending Clinician Ever Teran Attending Clinician [phone]- [phone] Payers Payer Name Policy Type Policy Number Effective Date Expirati on Date Source [facility] [id number] 2020 00:00:00 Problems Condition Name Condition Details Condition Category Status Onset Date Resolution Date Last Treatment Date Treating Clinician Comments Source Obesity (BMI 30-39.9) Obesity (BMI 30-39.9) Disease Active 2015-05 00:00: 00 [facility] Closed fracture of phalanx or phalanges of hand Closed fracture of phalanx or phalanges of hand Disease Active - 00:00: 00 Overview: Formattin g of this note might be different from the original. 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 [facility] Allergies, Adverse Reactions, Alerts Allergy Name Allergy Type Status Severity Reaction(s) Onset Date Inactive Date Treating Clinician Comments Source NO KNOWN ALLERGIE S Drug Class Active [facility] Social History Social Habit Start Date Stop Date Quantity Comments Source Exposure to SARS-CoV-2 (event) 2021-09-10 00:00:00 2021-09-20 13:31:00 Not sure [facility] Sex Assigned At 1995 00:00:00 1995 00:00:00 [facility] Smoking Status Start Date Stop Date Source Unknown if ever smoked [facility] Medications Ordered Medication Name Filled Medication Name Start Date Stop Date Current Medication? Ordering Clinician Indication Dosage Frequency Signature (SIG) Comments Components Source methylPREDN ISolone (MEDROL, MARLO,) 4 mg tablets 09-20 00:00: 00 Yes [id number] Take by mouth SEE-INSTRU CTIONS. follow package directions [facility] benzonatate 100 mg capsule 09-20 00:00: 00 Yes [id number] 100mg Take 1 capsule by mouth 3 (three) times daily as needed for Cough. [facility] traMADOL (ULTRAM) 50 mg tablet 2015-05 00:00: 00 Yes 50mg Take 1 tablet by mouth every 6 (six) hours as needed for Pain (scale 4-6). Janak John PA-C / Matthew Diaz MD ARIEL# [id number] DPS# [id number] Lic.# [id number] NPI# [id number] [facility] sulfamethox azole-trime thoprim (BACTRIM DS) 800-160 mg per tablet 2015-05 00:00: 00 Yes 1{tbl} Take 1 tablet by mouth every 12 (twelve) hours. [facility] sulindac (CLINORIL) 200 mg tablet 2015-05 00:00: 00 Yes 200mg Take 1 tablet by mouth 2 (two) times daily. [facility] Vital Signs Vital Name Observation Time Observation Value Comments S paulo Systolic blood pressure 2021-09-20 18:32:00 144 mm[Hg] [facility] Diastolic blood pressure 2021-09-20 18:32:00 95 mm[Hg] [facility] Heart rate 2021-09-20 18:32:00 84 /min [facility] Body temperature 2021-09-20 18:32:00 36.89 Allie [facility] Respiratory rate 2021-09-20 18:32:00 18 /min [facility] Body weight 2021-09-20 18:32:00 116.574 kg [facility] BMI 2021-09-20 18:32:00 33.91 kg/m2 [facility] Oxygen saturation in Arterial blood by Pulse oximetry 2021-09-20 18:32:00 98 /min [facility] Procedures Procedure Date / Time Performed Performing Clinicia n Source NOTICE OF PRIVACY PRACTICES 2021-09-20 18:27:12 Doctor Unassigned, [place] [facility] Encounters Start Date/Time End Date/Time Encounter Type Admission Type Attending Clinicians Care Facility Care Department Encounter ID Source 2021-09-20 13:33:00 2021-09-20 13:55:00 Emergency X [facility] ERT [id number] [facility] 2021-09-20 13:33:00 2021-09-20 13:55:00 [place] [facility] [id number] [facility]
--- NOTE | 2023-08-08 11:42 | RAD REPORT ---
EXAM DESCRIPTION: RAD - Hand Right 3 View - 08/08/2023 11:23 am CLINICAL HISTORY: Right hand pain status post injury FINDINGS: No fracture or dislocation is seen.
--- NOTE | 2023-08-08 11:46 | ER ---
Nurse's Notes [facility] Name: Benjamin Rico Jr Age: 28 yrs Sex: Male : 1995 Arrival Date: 08/08/2023 Time: 10:01 Bed 18 Private MD: Diagnosis: Right Hand Sprain Presentation: 08/07 10:12 Chief complaint: Fell from 8 foot ladder onto carpet floor yesterday, unknown LOC, c/o hb pain in right hand, right shoulder, headache, and mild SOB. Coronavirus screen: At this time, the client does not indicate any symptoms associated with coronavirus-19. Ebola Screen: No symptoms or risks identified at this time. Initial Sepsis Screen: Does the patient meet any 2 criteria? No. Patient's initial sepsis screen is negative. Does the patient have a suspected source of infection? No. Patient's initial sepsis screen is negative. Risk Assessment: Do you want to hurt yourself or someone else? Patient reports no desire to harm self or others. Onset of symptoms was August 07, 2023. 10:12 Method Of Arrival: Ambulatory hb 10:12 Acuity: LUANNE 3 hb Triage Assessment: 10:13 General: Appears in no apparent distress. Behavior is calm, cooperative. Pain: Pain hb currently is 9 out of 10 on a pain scale. EENT: No signs and/or symptoms were reported regarding the EENT system. Neuro: Level of Consciousness is awake, alert, obeys commands, Oriented to person, place, time, situation, Reports headache. Cardiovascular: Patient's skin is warm and dry. Respiratory: Reports shortness of breath at rest Respiratory effort is even, unlabored, Respiratory pattern is regular, symmetrical. GI: No signs and/or symptoms were reported involving the gastrointestinal system. : No signs and/or symptoms were reported regarding the genitourinary system. Derm: Skin is pink, warm \T\ dry. Musculoskeletal: Reports pain in right shoulder, right hand. Historical: - Allergies: 10:13 No Known Allergies; hb - Home Meds: 10:13 None [Active]; hb - PMHx: 10:13 None; hb - PSHx: 10:13 None; hb - Immunization history:: Adult Immunizations up to date. - Social history:: Smoking status: Patient denies any tobacco usage or history of. Screenin:25 [facility] ED Fall Risk Assessment (Adult) History of falling in the last 3 months, ph including since admission Yes- single mechanical fall (1 pt) Confusion or Disorientation No (0 pts) Intoxicated or Sedated No (0 pts) Impaired Gait No (0 pts) Mobility Assist Device Used No (0 pt) Altered Elimination No (0 pt) Score/Fall Risk Level 0 - 2 = Low Risk Oriented to surroundings, Maintained a safe environment, Provided non-skid footwear, Hourly rounding (assess needs \T\ fall precautionary measures) done. Abuse screen: Denies threats or abuse. Denies injuries from another. Nutritional screening: No deficits noted. Tuberculosis screening: No symptoms or risk factors identified. Assessment: 11:24 General: Appears in no apparent distress. comfortable, well groomed, Behavior is calm, ph cooperative, appropriate for age. Pain: Complains of pain in right hand. Neuro: Level of Consciousness is awake, alert, obeys commands, Oriented to person, place, time, situation. Derm: Skin is pink, warm \T\ dry. Musculoskeletal: Circulation, motion, and sensation intact. Swelling present in right hand. Vital Signs: 10:12 BP 133 / 84; Pulse 68; Resp 16; Temp 98.3; Pulse Ox 100% ; Weight 113.4 kg; Height 6 hb ft. 0 in. ; Pain 9/10; 12:18 BP 124 / 78; Pulse 69; Resp 18; Temp 98; Pulse Ox 99% on R/A; ph 10:12 Body Mass Index 33.91 (113.40 kg, 182.88 cm) hb 10:12 Pain Scale: Adult hb ED Course: 10:04 Patient arrived in ED. rg4 10:04 Oxana Sky FNP is PHCP. jh7 10:04 Wicho Ag MD is Attending Physician. jh7 10:13 Triage completed. hb 10:14 Arm band placed on. hb 10:15 Client placed on continuous cardiac and pulse oximetry monitoring. NIBP monitoring hb applied. Pulse ox on. NIBP on. 10:26 Nidhi Herman, RN is Primary Nurse. ph 11:25 XRAY Hand RIGHT 3 View In Process Unspecified. EDMS 11:25 Patient has correct armband on for positive identification. Bed in low position. Call ph light in reach. Side rails up X 1. Door closed. Noise minimized. 12:19 No provider procedures requiring assistance completed. Patient did not have IV access ph during this emergency room visit. Administered Medications: 11:03 Drug: Acetaminophen PO 1000 mg PO once Route: PO; ph 12:20 Follow up: Response: No adverse reaction ph Medication: 11:25 VIS not applicable for this client. ph Outcome: 11:46 Discharge ordered by MD. talbot 12:20 Discharged to home ambulatory, ph 12:20 Condition: good 12:20 Discharge instructions given to patient, Instructed on discharge instructions, follow up and referral plans. medication usage, Demonstrated understanding of instructions, follow-up care, medications, Prescriptions given X 1, 12:21 Patient left the ED. ph Signatures: Dispatcher [employer] EDNidhi Foss RN RN Zo Riley, LASHAE Balbuena, Aurelia rg4 Oxana Sky, [employer] 7
--- NOTE | 2023-08-08 11:46 | EDPHYS ---
Physician Documentation [facility] Name: Benjamin Rico Jr Age: 28 yrs Sex: Male : 1995 Arrival Date: 08/08/2023 Time: 10:01 Bed 18 Private MD: ED Physician Wicho Ag HPI: 08/07 10:15 This 28 yrs old Black Male presents to ER via Ambulatory with complaints of Fall jh7 Injury, Hand Pain. 10:15 Details of fall: The patient fell from a height, from a ladder, approximately 3 feet. jh7 Onset: The symptoms/episode began/occurred yesterday. Associated injuries: The patient sustained right hand, painful injury, swelling. 28-year-old male reports that he was on an 8 foot ladder, but was only 3 feet up in the air at the time of the fall. Reported that he pushed something while on the ladder which caused him to fall backwards on his right hand. States that the incident happened yesterday morning and that his pain worsened today. Denies head injury or LOC. No past medical history.. Historical: - Allergies: 10:13 No Known Allergies; hb - Home Meds: 10:13 None [Active]; hb - PMHx: 10:13 None; hb - PSHx: 10:13 None; hb - Immunization history:: Adult Immunizations up to date. - Social history:: Smoking status: Patient denies any tobacco usage or history of. ROS: 10:15 Constitutional: Negative for fever, chills, and weight loss, Eyes: Negative for injury, jh7 pain, redness, and discharge, Neck: Negative for injury, pain, and swelling, Cardiovascular: Negative for chest pain, palpitations, and edema, Respiratory: Negative for shortness of breath, cough, wheezing, and pleuritic chest pain, Abdomen/GI: Negative for abdominal pain, nausea, vomiting, diarrhea, and constipation, Back: Negative for injury and pain, Skin: Negative for injury, rash, and discoloration, Neuro: Negative for headache, weakness, numbness, tingling, and seizure, 10:15 MS/extremity: Positive for pain, swelling, tenderness, of the right hand, 10:15 All other systems are negative, Exam: 10:15 Constitutional: This is a well developed, well nourished patient who is awake, alert, jh7 and in no acute distress. Head/Face: Normocephalic, atraumatic. Neck: Trachea midline, no thyromegaly or masses palpated, and no cervical lymphadenopathy. Supple, full range of motion without nuchal rigidity, or vertebral point tenderness. No Meningismus. Cardiovascular: Regular rate and rhythm with a normal S1 and S2. No gallops, murmurs, or rubs. Normal PMI, no JVD. No pulse deficits. Respiratory: Lungs have equal breath sounds bilaterally, clear to auscultation and percussion. No rales, rhonchi or wheezes noted. No increased work of breathing, no retractions or nasal flaring. Abdomen/GI: Soft, non-tender, with normal bowel sounds. No distension or tympany. No guarding or rebound. No evidence of tenderness throughout. Back: No spinal tenderness. No costovertebral tenderness. Full range of motion. Skin: Warm, dry with normal turgor. Normal color with no rashes, no lesions, and no evidence of cellulitis. Neuro: Awake and alert, GCS 15, oriented to person, place, time, and situation. Motor strength 5/5 in all extremities. Sensory grossly intact. Normal gait. 10:15 Musculoskeletal/extremity: Extremities: noted in the 1st and 2nd metacarpals of R hand: swelling, tenderness, ROM: full active range of motion, limited active range of motion due to pain, in the right hand, Circulation is intact in all extremities. Pulses: are normal with no appreciated deficits, Sensation intact. Vital Signs: 10:12 BP 133 / 84; Pulse 68; Resp 16; Temp 98.3; Pulse Ox 100% ; Weight 113.4 kg; Height 6 hb ft. 0 in. ; Pain 9/10; 12:18 BP 124 / 78; Pulse 69; Resp 18; Temp 98; Pulse Ox 99% on R/A; ph 10:12 Body Mass Index 33.91 (113.40 kg, 182.88 cm) hb 10:12 Pain Scale: Adult hb MDM: 10:04 Patient medically screened. [facility] 11:48 Differential diagnosis: contusion, fracture, sprain, strain. Data reviewed: vital [facility] signs, nurses notes, radiologic studies, plain films. I considered the following discharge prescriptions or medication management in the emergency department Medications were administered in the Emergency Department. See MAR. Independent interpretation of the following test(s) in the Emergency Department X-Ray: My interpretation is no acute fractures. Counseling: I had a detailed discussion with the patient and/or guardian regarding the historical points, exam findings, and any diagnostic results supporting the discharge/admit diagnosis, to return to the emergency department if symptoms worsen or persist or if there are any questions or concerns that arise at home. Response to treatment: the patient's symptoms have mildly improved after treatment. 08/07 10:21 Order name: XRAY Hand RIGHT 3 View; Complete Time: 11:45 [facility] Administered Medications: 11:03 Drug: Acetaminophen PO 1000 mg PO once Route: PO; ph 12:20 Follow up: Response: No adverse reaction ph Disposition Summary: 08/08/23 11:46 Discharge Ordered Notes: Location: Home [facility] Problem: new [facility] Symptoms: have improved [facility] Condition: Stable [facility] Diagnosis - Right Hand Sprain [facility] Followup: [facility] - With: Private Physician - When: 2 - 3 days - Reason: Recheck today's complaints Discharge Instructions: - Discharge Summary Sheet [facility] - Hand Contusion 7 - Hand Pain [facility] Forms: - Work release form ds4 - Medication Reconciliation Form 7 - Thank You Letter 7 - Patient Portal Instructions 7 - Leadership Thank You Letter [facility] Prescriptions: - Naprosyn 500 mg Oral Tablet - take 1 tablet ORAL route 2 times per day take with food; 30 tablet; Refills: 0, jh7 Product Selection Permitted Signatures: Dispatcher [employer] Nidhi Harris RN RN ph Baxter, Heather, RN RN Oxana Sky FNP [place] [phone]
[2023-08-08 12:27] VITALS: BP 124/78; TEMP 98; O2SAT 99
== END ==
LOC: ER 10:01
DX: S63.91XA Sprain of unspecified part of right wrist and hand, initial encounter (principal); W11.XXXA Fall on and from ladder, initial encounter
CPT/HCPCS: 99284